=== PATIENT | male | born 1980 | race Caucasian/White ===

== ENCOUNTER 2017-10-02 01:24 | Emergency (ER) | payer BC, OTHER ==
--- NOTE | 2017-10-02 01:45 | EDM.PDOC ---
ED HPI GENERAL MEDICAL PROBLEM - General Stated Complaint: SEIZURES Time Seen by Provider: 10/02/17 01:25 Source of Information: Reports: Patient, EMS History Limitations: Reports: No Limitations - History of Present Illness INITIAL COMMENTS - FREE TEXT/NARRATIVE: HISTORY AND PHYSICAL: History of present illness: [36-year-old male presenting to the emergency department by EMS and police for seizure-like activity. Patient was arrested this evening for suspected DUI. Patient refused breathalyzer on scene so was being taken into the [employer]. During transportation he began to throw himself around the backside of the car having seizure-like activity so officer summoned EMS. When EMS arrived they state the patient was on his left side and vehicle. When they questioned him he was alert and oriented but then became combative. During transport he began to have this seizure like activity so was given 2.5 mg nasal Versed which as per EMS he blew out. He then was given 5 mg Versed IM which EMS stated was not very affective. When questioning patient he states that he remembers them giving him this medications when he states he was having a seizure and they did not have his permission. He still somewhat combative and states that he is refusing any blood work. He is alert and orientated when questioned further. Patient had seizure like activity when I was present. He was responsive the entire time when I tried to get a blood draw which he physically withdrew. This was not seizure activity. Patient was released to police for incarceration. ] Review of systems: As per history of present illness and below otherwise all systems reviewed and negative. Past medical history: As per history of present illness and as reviewed below otherwise noncontributory. Surgical history: As per history of present illness and as reviewed below otherwise noncontributory. Social history: No reported history of drug or alcohol abuse. Family history: As per history of present illness and as reviewed below otherwise noncontributory. Physical exam: HEENT: Atraumatic, normocephalic, pupils reactive, negative for conjunctival pallor or scleral icterus, mucous membranes moist, throat clear, neck supple, nontender, trachea midline. Lungs: Clear to auscultation, breath sounds equal bilaterally, chest nontender. Heart: S1S2, regular, negative for clicks, rubs, or JVD. Abdomen: Soft, nondistended, nontender. Negative for masses or hepatosplenomegaly. Negative for costovertebral tenderness. Pelvis: Stable nontender. Genitourinary: Deferred. Rectal: Deferred. Extremities: Atraumatic, negative for cords or calf pain. Neurovascular unremarkable. Neuro: Awake, alert, oriented. Cranial nerves II through XII unremarkable. Cerebellum unremarkable. Motor and sensory unremarkable throughout. Exam nonfocal. Diagnostics: [Patient refused] Therapeutics: [Patient refused] Impression: [Psychogenic nonepileptic seizure.] Plan: [Discharged to police for incarceration.] - Related Data Allergies Allergy/AdvReac Type Severity Reaction Status Date / Time No Known Allergies Allergy Verified 03/31/14 18:20 Home Meds: Home Meds . [No Known Home Meds] 03/31/14 [History] Past Medical History - Past Health History Medical/Surgical History: Denies Medical/Surgical History Social & Family History - Tobacco Use Smoking Status *Q: Light Tobacco Smoker - Alcohol Use Days Per Week of Alcohol Use: 1 Number of Drinks Per Day: 6 Total Drinks Per Week: 6 - Recreational Drug Use Recreational Drug Use: No ED ROS GENERAL - Review of Systems Review Of Systems: See Below ED EXAM, GENERAL - Physical Exam Exam: See Below Course - Orders/Labs/Meds Orders: Active Orders 24 hr Category Date Time Status Cervical Spine wo Cont [CT] Stat Exams 10/02/17 01:27 Ordered Head wo Cont [CT] Stat Exams 10/02/17 01:27 Ordered CBC WITH AUTO DIFF [HEME] Stat Lab 10/02/17 01:27 Ordered CMP [COMPREHENSIVE METABOLIC PN,CMP] [CHEM] Stat Lab 10/02/17 01:27 Ordered ETOH [ETHANOL BLOOD MEDICAL] [CHEM] Stat Lab 10/02/17 01:28 Ordered PROLACTIN [CHEM] Stat Lab 10/02/17 01:27 Ordered Departure - Departure Time of Disposition: 02:03 Disposition: DC/Tfer to Other 70 Condition: Good Clinical Impression: Psychogenic nonepileptic seizure - Discharge Information Additional Instructions: My general discharge The following information is given to patients seen in the emergency department who are being discharged to home. This information is to outline your options for follow-up care. We provide all patients seen in our emergency department with a follow-up referral. The need for follow-up, as well as the timing and circumstances, are variable depending upon the specifics of your emergency department visit. If you don't have a primary care physician on staff, we will provide you with a referral. We always advise you to contact your personal physician following an emergency department visit to inform them of the circumstance of the visit and for follow-up with them and/or the need for any referrals to a consulting specialist. The emergency department will also refer you to a specialist when appropriate. This referral assures that you have the opportunity for follow-up care with a specialist. All of these measure are taken in an effort to provide you with optimal care, which includes your follow-up. Under all circumstances we always encourage you to contact your private physician who remains a resource for coordinating your care. When calling for follow-up care, please make the office aware that this follow-up is from your recent emergency room visit. If for any reason you are refused follow-up, please contact the [facility] Emergency Department at and asked to speak to the emergency department charge nurse. [facility] [address] [place] [id number] - My Orders Last 24 Hours: My Active Orders 10/02/17 01:27 Cervical Spine wo Cont [CT] Stat Head wo Cont [CT] Stat CBC WITH AUTO DIFF [HEME] Stat CMP [COMPREHENSIVE METABOLIC PN,CMP] [CHEM] Stat PROLACTIN [CHEM] Stat 10/02/17 01:28 ETOH [ETHANOL BLOOD MEDICAL] [CHEM] Stat - Assessment/Plan Last 24 Hours: My Active Orders 10/02/17 01:27 Cervical Spine wo Cont [CT] Stat Head wo Cont [CT] Stat CBC WITH AUTO DIFF [HEME] Stat CMP [COMPREHENSIVE METABOLIC PN,CMP] [CHEM] Stat PROLACTIN [CHEM] Stat 10/02/17 01:28 ETOH [ETHANOL BLOOD MEDICAL] [CHEM] Stat
== END 2017-10-02 02:06 | disposition other institution (70) ==
LOC: MW.ED 01:24
DX: F44.5 Conversion disorder with seizures or convulsions (principal); F17.210 Nicotine dependence, cigarettes, uncomplicated
CPT/HCPCS: 99283; 99284

== ENCOUNTER 2019-07-25 12:31 | Observation (INO) | payer OTHER ==
--- NOTE | 2019-07-25 12:52 | EDM.PDOC ---
ED HPI GENERAL MEDICAL PROBLEM - General Chief Complaint: Chest Pain Stated Complaint: HIGH BLOOD PRESSURE Time Seen by Provider: 07/25/19 12:51 Source of Information: Reports: Patient History Limitations: Reports: No Limitations - History of Present Illness INITIAL COMMENTS - FREE TEXT/NARRATIVE: Patient is a 38-year-old male who is complaining of having elevated blood pressure which was noted this last while at his dentist. This pressure was over 200/100 at that time. Patient was not having any symptoms besides a mild headache initially. He has since developed exertional shortness of breath and chest pain which has been getting worse. He describes the pain as chest tightness that does radiate to his jaws and pressure-like with 3-4 out of 10 in intensity. He is having dyspnea on exertion but none at rest. He denies any fever chills or diaphoresis or vomiting. He denies any bloody or tarry looking stools. Patient denies any pedal edema or calf swelling or tenderness. He is a cigarette smoker and does have positive family history for coronary artery disease. Patient has not been using any drugs or cocaine and has no history of diabetes or hypercholesterolemia. Is not on any medicines for his elevated blood pressure. Onset: Unknown/Unsure Location: Reports: Chest Quality: Reports: Pressure Severity: Moderate Improves with: Reports: Rest Worsens with: Reports: Movement Associated Symptoms: Reports: Chest Pain, Headaches, Shortness of Breath. Denies: Cough, Fever/Chills, Nausea/Vomiting Head Pain Score (Numeric/FACES): 3 chest Pain Score (Numeric/FACES): 1 - Related Data Allergies Allergy/AdvReac Type Severity Reaction Status Date / Time No Known Allergies Allergy Verified 07/25/19 12:49 Home Meds: Home Meds Aspirin 81 mg PO DAILY tab.chew 07/26/19 [Rx] Chlorthalidone 25 mg PO DAILY #30 tablet 07/26/19 [Rx] amLODIPine [Norvasc] 10 mg PO DAILY #60 tablet 07/26/19 [Rx] Past Medical History - Past Health History Medical/Surgical History: Denies Medical/Surgical History ED ROS GENERAL - Review of Systems Review Of Systems: Comprehensive ROS is negative, except as noted in HPI. ED EXAM, GENERAL - Physical Exam Exam: See Below Free Text/Narrative:: Exam: See Below Exam Limited By: No Limitations Head: Atraumatic Neck: Normal Inspection. No: Carotid Bruit, Lymphadenopathy (R) Respiratory/Chest: No Respiratory Distress, Lungs Clear, Normal Breath Sounds, No Accessory Muscle Use. No: Chest Non-Tender Cardiovascular: Normal Peripheral Pulses, Regular Rate, Rhythm, No Edema, No JVD GI/Abdominal: Normal Bowel Sounds, Tender. No: Non-Tender, Splenomegaly Back Exam: Normal Inspection. No: CVA Tenderness (R) Extremities: Normal Inspection. No: No Pedal Edema Neurological: Alert, Oriented, Normal Cognition Psychiatric: Normal Affect Skin Exam: Warm Lymphatic: No Adenopathy Exam Limited By: No Limitations General Appearance: Alert, No Apparent Distress Throat/Mouth: Normal Inspection Head: Atraumatic, Normocephalic Neck: Normal Inspection, Non-Tender Respiratory/Chest: No Respiratory Distress, Lungs Clear, Normal Breath Sounds. No: Crackles, Rales, Rhonchi Cardiovascular: Regular Rate, Rhythm, No Edema, No JVD Back Exam: Normal Inspection Extremities: Normal Inspection, No Pedal Edema Neurological: Alert, Oriented Psychiatric: Normal Affect, Normal Mood Skin Exam: Warm, Dry EKG INTERPRETATION Rhythm: NSR P-Wave: Present ST-T: Normal QT: Normal Course - Vital Signs Last Recorded V/S: Last Vital Signs Temp 36.6 C 07/26/19 11:00 Pulse 76 07/26/19 11:00 Resp 16 07/26/19 11:00 BP 148/98 H 07/26/19 11:00 Pulse Ox 96 07/26/19 11:00 - Orders/Labs/Meds Labs: Laboratory Tests 07/25/19 07/25/19 07/25/19 Range/Units 12:55 12:55 12:55 WBC 9.84 (4.0-11.0) K/uL RBC 5.45 (4.50-5.90) M/uL Hgb 19.1 H (13.0-17.0) g/dL Hct 53.4 H (38.0-50.0) % MCV 98.0 (80.0-98.0) fL MCH 35.0 H (27.0-32.0) pg MCHC 35.8 (31.0-37.0) g/dL RDW Std Deviation 47.5 (28.0-62.0) fl RDW Coeff of Oscar 13 (11.0-15.0) % Plt Count 266 (150-400) K/uL MPV 8.90 (7.40-12.00) fL Neut % (Auto) 69.0 (48.0-80.0) % Lymph % (Auto) 14.5 L (16.0-40.0) % Mesa % (Auto) 11.3 (0.0-15.0) % Eos % (Auto) 4.8 (0.0-7.0) % Baso % (Auto) 0.4 (0.0-1.5) % Neut # (Auto) 6.8 H (1.4-5.7) K/uL Lymph # (Auto) 1.4 (0.6-2.4) K/uL Mesa # (Auto) 1.1 H (0.0-0.8) K/uL Eos # (Auto) 0.5 (0.0-0.7) K/uL Baso # (Auto) 0.0 (0.0-0.1) K/uL Nucleated RBC % 0.0 /100WBC Nucleated RBCs # 0 K/uL INR 0.95 D-Dimer, Quantitative 0.26 (0.0-0.50) mg/L FEU Sodium 135 L (136-148) mmol/L Potassium 4.5 (3.5-5.1) mmol/L Chloride 100 (98-107) mmol/L Carbon Dioxide 25.8 (21.0-32.0) mmol/L BUN 9 (7.0-18.0) mg/dL Creatinine 1.3 (0.8-1.3) mg/dL Est Cr Clr Drug Dosing 86.22 mL/min Estimated GFR (MDRD) > 60.0 ml/min Glucose 85 (74-106) mg/dL Calcium 9.2 (8.5-10.1) mg/dL Iron (50-175) ug/dL TIBC (250-450) ug/dL % Saturation (20-55) % Ferritin (26-388) ng/mL Total Bilirubin 0.9 (0.2-1.0) mg/dL AST 178 H (15-37) IU/L ALT 245 H (14-63) IU/L Alkaline Phosphatase 92 (46-116) U/L Troponin I < 0.050 (0.000-0.056) ng/mL Total Protein 8.0 (6.4-8.2) g/dL Albumin 4.0 (3.4-5.0) g/dL Globulin 4.0 (2.6-4.0) g/dL Albumin/Globulin Ratio 1.0 (0.9-1.6) TSH 3rd Generation (0.36-3.74) uIU/mL 07/25/19 07/25/19 Range/Units 12:55 12:55 WBC (4.0-11.0) K/uL RBC (4.50-5.90) M/uL Hgb (13.0-17.0) g/dL Hct (38.0-50.0) % MCV (80.0-98.0) fL MCH (27.0-32.0) pg MCHC (31.0-37.0) g/dL RDW Std Deviation (28.0-62.0) fl RDW Coeff of Oscar (11.0-15.0) % Plt Count (150-400) K/uL MPV (7.40-12.00) fL Neut % (Auto) (48.0-80.0) % Lymph % (Auto) (16.0-40.0) % Mesa % (Auto) (0.0-15.0) % Eos % (Auto) (0.0-7.0) % Baso % (Auto) (0.0-1.5) % Neut # (Auto) (1.4-5.7) K/uL Lymph # (Auto) (0.6-2.4) K/uL Mesa # (Auto) (0.0-0.8) K/uL Eos # (Auto) (0.0-0.7) K/uL Baso # (Auto) (0.0-0.1) K/uL Nucleated RBC % /100WBC Nucleated RBCs # K/uL INR D-Dimer, Quantitative (0.0-0.50) mg/L FEU Sodium (136-148) mmol/L Potassium (3.5-5.1) mmol/L Chloride (98-107) mmol/L Carbon Dioxide (21.0-32.0) mmol/L BUN (7.0-18.0) mg/dL Creatinine (0.8-1.3) mg/dL Est Cr Clr Drug Dosing mL/min Estimated GFR (MDRD) ml/min Glucose (74-106) mg/dL Calcium (8.5-10.1) mg/dL Iron 93 (50-175) ug/dL TIBC 462 H (250-450) ug/dL % Saturation 20.13 (20-55) % Ferritin 260 (26-388) ng/mL Total Bilirubin (0.2-1.0) mg/dL AST (15-37) IU/L ALT (14-63) IU/L Alkaline Phosphatase (46-116) U/L Troponin I (0.000-0.056) ng/mL Total Protein (6.4-8.2) g/dL Albumin (3.4-5.0) g/dL Globulin (2.6-4.0) g/dL Albumin/Globulin Ratio (0.9-1.6) TSH 3rd Generation 2.03 (0.36-3.74) uIU/mL Meds: Medications Discontinued Medications Generic Name Dose Route Start Last Admin Trade Name Freq PRN Reason Stop Dose Admin Acetaminophen 650 mg 07/25/19 13:11 07/25/19 13:36 Tylenol PO 07/25/19 13:12 650 mg NOW ONE Administration Amlodipine Besylate 10 mg 07/25/19 16:30 07/26/19 09:46 Norvasc PO 10 mg DAILY KWABENA Administration Aspirin 324 mg 07/25/19 13:06 07/25/19 13:36 Aspirin PO 07/25/19 13:07 324 mg ONETIME ONE Administration Aspirin 81 mg 07/26/19 09:00 07/26/19 09:46 Aspirin PO 81 mg DAILY KWABENA Administration Chlorthalidone 25 mg 07/25/19 21:52 07/26/19 09:45 Chlorthalidone PO 25 mg DAILY [facility] Administration Enoxaparin Sodium 100 mg 07/25/19 17:43 07/25/19 18:06 Lovenox SUBCUT 07/25/19 17:44 100 mg ONETIME ONE Administration Influenza Virus Vaccine 60 mcg 07/26/19 09:00 07/26/19 12:29 Fluzone Quad [id number] Syringe IM 07/26/19 09:01 60 mcg .ONCE ONE Administration Labetalol HCl 10 mg 07/25/19 16:23 Normodyne IVPUSH Q6H PRN Hypertension Protocol Metoprolol Tartrate 5 mg 07/25/19 13:08 07/25/19 13:36 Lopressor IVPUSH 07/25/19 13:09 5 mg ONETIME ONE Administration Metoprolol Tartrate 50 mg 07/25/19 16:30 Lopressor PO Q12H KWABENA Morphine Sulfate 1 mg 07/25/19 17:46 Morphine IVPUSH Q4H PRN Pain Nitroglycerin 1 gm 07/25/19 13:08 07/25/19 13:37 Nitro-Bid 2% TOP 07/25/19 13:09 1 gm ONETIME ONE Administration Sodium Chloride 10 ml 07/25/19 13:06 07/25/19 13:37 Saline Flush FLUSH 10 ml ASDIRECTED PRN Administration Keep Vein Open Sodium Chloride 2.5 ml 07/25/19 13:06 07/25/19 13:37 Saline Flush FLUSH 2.5 ml ASDIRECTED PRN Administration Keep Vein Open Departure - Departure Time of Disposition: 19:00 Disposition: Refer to Observation Condition: Good Clinical Impression: Atypical chest pain, Hypertension Sepsis Event Note - Focused Exam Date Exam was Performed: 08/29/19 Time Exam was Performed: 16:07
[2019-07-25] MEDS ORDERED: Sodium Chloride 0.9% 10 ML Syringe FLUSH PRN (13:06)
[2019-07-25] MEDS ORDERED: Aspirin 81 MG Tab.Chew PO ONE (13:06)
[2019-07-25] MEDS ORDERED: Sodium Chloride 0.9% 2.5 ML Syringe FLUSH PRN (13:06)
[2019-07-25] MEDS ORDERED: Nitroglycerin 2% Oint 1 GM UD Packet TOP ONE (13:08)
[2019-07-25] MEDS ORDERED: Metoprolol Tartrate 5 MG/5 ML SDV IVPUSH ONE (13:08)
[2019-07-25] MEDS ORDERED: Acetaminophen 325 MG Tab PO ONE (13:11)
[2019-07-25 13:30] LABS: BLOOD UREA NITROGEN,BUN 9 mg/dL (7.0-18.0); CARBON DIOXIDE,CO2 25.8 mmol/L (21.0-32.0); CHLORIDE,CL 100 mmol/L (98-107); GLUCOSE RANDOM 85 mg/dL (74-106); POTASSIUM,K 4.5 mmol/L (3.5-5.1); SODIUM,NA 135 mmol/L (136-148)
--- NOTE | 2019-07-25 13:48 | CR ---
INDICATION: Chest pain TECHNIQUE: Chest 1 view. COMPARISON: None FINDINGS: Cardiovascular and mediastinum: Heart size upper limits of normal. Mediastinum is within normal limits. Lungs and pleural space: Lungs are clear. No sign of infiltrate or mass. No sign of pleural effusion. No pneumothorax. Bones and soft tissues: No significant findings. IMPRESSION: No acute pulmonary or cardiac abnormalities. Dictated by Demarcus Bennett MD @ 07/25/2019 1:46:09 PM Dictated by: Demarcus Bennett MD @ 07/25/2019 13:46:15 (Electronically Signed)
[2019-07-25] MEDS ORDERED: Labetalol 100 MG/20 ML MDV IVPUSH PRN (16:23)
[2019-07-25] MEDS ORDERED: Metoprolol Tartrate 50 MG Tab PO SCH (16:30)
--- NOTE | 2019-07-25 16:43 | PCM.HP.2 ---
H&P History of Present Illness - General Date of Service: 07/25/19 Admit Problem/Dx: Admission Diagnosis/Problem Admission Diagnosis/Problem Chest pain - History of Present Illness Initial Comments - Free Text/Narative: Patient is a 38-year-old male with PMH of taboo abuse, recent HTN diagnosis who comes in for evaluation of elevated blood pressure. Patient states that his BP was noted to be high (200/100) while he was at his dentist office last . which was noted this last while at his dentist. Patient was recommended to fu with his PCP but comes in today as he has been having a vague headache. Patient also complains of exertional shortness of breath and chest tightness which has been getting worse. Chest discomfort is 2-3/10 and does radiate to his jaws and pressure-like. Patient denies any fever, chills, N/V, diaphoresis, palpitations,syncope. He denies any bloody or tarry looking stools. Patient denies any pedal edema or calf swelling or tenderness. Denied any drug use. In the ER patient was found to have high BP 190/115, patient also c/o chest tightness. Received Lopressor rin ER and BP improved. Patient is being admitted for management of hypertensive urgency and chest pain. Onset of Symptoms: Reports: Gradual chest Pain Score (Numeric/FACES): 1 Head Pain Score (Numeric/FACES): 3 - Related Data Allergies/Adverse Reactions: Allergies Allergy/AdvReac Type Severity Reaction Status Date / Time No Known Allergies Allergy Verified 07/25/19 12:49 Home Medications: Home Meds Aspirin 81 mg PO DAILY tab.chew 07/26/19 [Rx] Chlorthalidone 25 mg PO DAILY #30 tablet 07/26/19 [Rx] amLODIPine [Norvasc] 10 mg PO DAILY #60 tablet 07/26/19 [Rx] Past Medical History - Past Health History Medical/Surgical History: Denies Medical/Surgical History - Infectious Disease History Infectious Disease History: Reports: None Social & Family History - Family History Family Medical History: Noncontributory - Tobacco Use Smoking Status *Q: Never Smoker Second Hand Smoke Exposure: No - Caffeine Use Caffeine Use: Reports: None - Recreational Drug Use Recreational Drug Use: No H&P Review of Systems - Review of Systems: Review Of Systems: See Below General: Denies: Fever, Chills, Malaise, Weakness, Fatigue HEENT: Reports: Headaches. Denies: Dysphasia, Ear Pain Pulmonary: Denies: Shortness of Breath, Wheezing, Sputum Cardiovascular: Reports: Chest Pain, Dyspnea on Exertion. Denies: Palpitations , Orthopnea, PND, Edema Gastrointestinal: Denies: Abdominal Pain, Anorexia, Black Stool Genitourinary: Denies: Dysuria, Frequency, Burning Musculoskeletal: Denies: Neck Pain, Shoulder Pain, Arm Pain Skin: Denies: Cyanosis, Jaundice, Mottled Psychiatric: Denies: Confusion, Depression Neurological: Denies: Confusion, Dizziness, Headache Exam - Exam Exam: See Below - Vital Signs Vital Signs: Last Vital Signs Temp 35.4 C 07/25/19 12:50 Pulse 85 07/25/19 15:45 Resp 16 07/25/19 15:45 BP 145/79 H 07/25/19 15:45 Pulse Ox 95 07/25/19 15:45 Weight: 113.398 kg - Exam General: Alert, Oriented HEENT: Conjunctiva Clear, EACs Clear Neck: Supple, Trachea Midline Lungs: Clear to Auscultation, Normal Respiratory Effort Cardiovascular: Regular Rate, Regular Rhythm, Normal S1, Normal S2 GI/Abdominal Exam: Normal Bowel Sounds, Soft, Non-Tender Peripheral Pulses: 3+: Dorsalis Pedis (L), Dorsalis Pedis (R) Neurological: Cranial Nerves Intact, Strength Equal Bilateral, Normal Tone, Sensation Intact Neuro Extensive - Mental Status: Alert, Oriented x3, Normal Mood/Affect Neuro Extensive - Motor, Sensory, Reflexes: CN II-XII Intact - Patient Data Lab Results Last 24 hrs: Laboratory Results - last 24 hr 07/25/19 07/25/19 07/25/19 Range/Units 12:55 12:55 12:55 WBC 9.84 (4.0-11.0) K/uL RBC 5.45 (4.50-5.90) M/uL Hgb 19.1 H (13.0-17.0) g/dL Hct 53.4 H (38.0-50.0) % MCV 98.0 (80.0-98.0) fL MCH 35.0 H (27.0-32.0) pg MCHC 35.8 (31.0-37.0) g/dL RDW Std Deviation 47.5 (28.0-62.0) fl RDW Coeff of Oscar 13 (11.0-15.0) % Plt Count 266 (150-400) K/uL MPV 8.90 (7.40-12.00) fL Neut % (Auto) 69.0 (48.0-80.0) % Lymph % (Auto) 14.5 L (16.0-40.0) % [place] % (Auto) 11.3 (0.0-15.0) % Eos % (Auto) 4.8 (0.0-7.0) % Baso % (Auto) 0.4 (0.0-1.5) % Neut # (Auto) 6.8 H (1.4-5.7) K/uL Lymph # (Auto) 1.4 (0.6-2.4) K/uL [place] # (Auto) 1.1 H (0.0-0.8) K/uL Eos # (Auto) 0.5 (0.0-0.7) K/uL Baso # (Auto) 0.0 (0.0-0.1) K/uL Nucleated RBC % 0.0 /100WBC Nucleated RBCs # 0 K/uL INR 0.95 D-Dimer, Quantitative 0.26 (0.0-0.50) mg/L FEU Sodium 135 L (136-148) mmol/L Potassium 4.5 (3.5-5.1) mmol/L Chloride 100 (98-107) mmol/L Carbon Dioxide 25.8 (21.0-32.0) mmol/L BUN 9 (7.0-18.0) mg/dL Creatinine 1.3 (0.8-1.3) mg/dL Est Cr Clr Drug Dosing 86.22 mL/min Estimated GFR (MDRD) > 60.0 ml/min Glucose 85 (74-106) mg/dL Calcium 9.2 (8.5-10.1) mg/dL Total Bilirubin 0.9 (0.2-1.0) mg/dL AST 178 H (15-37) IU/L ALT 245 H (14-63) IU/L Alkaline Phosphatase 92 (46-116) U/L Troponin I < 0.050 (0.000-0.056) ng/mL Total Protein 8.0 (6.4-8.2) g/dL Albumin 4.0 (3.4-5.0) g/dL Globulin 4.0 (2.6-4.0) g/dL Albumin/Globulin Ratio 1.0 (0.9-1.6) Result Diagrams: 07/26/19 05:30 07/26/19 05:30 Sepsis Event Note - Evaluation Sepsis Screening Result: No Definite Risk - Focused Exam Vital Signs: Vital Signs Temp Pulse Pulse Resp BP BP Pulse Ox 07/25/19 15:45 85 16 145/79 H 95 07/25/19 15:00 80 18 155/92 H 98 07/25/19 14:45 83 18 152/90 H 96 07/25/19 14:15 81 18 169/106 H 98 07/25/19 13:48 77 18 175/103 H 96 07/25/19 13:36 90 172/103 H 07/25/19 13:06 90 18 170/105 H 98 07/25/19 12:50 35.4 C 87 16 190/115 H 95 Date Exam was Performed: 08/02/19 Time Exam was Performed: 20:00 - Problem List (1) Hypertensive urgency SNOMED Code(s): 586348272 ICD Code: I16.0 - HYPERTENSIVE URGENCY Status: Acute (2) Elevated troponin SNOMED Code(s): 262791217, 194320736, 319765563 ICD Code: R79.89 - OTHER SPECIFIED ABNORMAL FINDINGS OF BLOOD CHEMISTRY Status: Acute (3) Transaminitis SNOMED Code(s): 227217802, 046134630 ICD Code: R74.0 - NONSPEC ELEV OF LEVELS OF TRANSAMNS & LACTIC ACID DEHYDRGNSE Status: Acute Problem List Initiated/Reviewed/Updated: Yes Orders Last 24hrs: Active Orders 24 hr Category Date Time Status Admission Status [Patient Status] [ADT] Stat ADT 07/25/19 15:31 Active Ambulate [RC] ASDIRECTED Care 07/25/19 16:17 Ordered Antiembolic Devices [RC] PER UNIT ROUTINE Care 07/25/19 16:20 Ordered Oxygen Therapy [RC] PRN Care 07/25/19 16:18 Ordered VTE/DVT Education [RC] PER UNIT ROUTINE Care 07/25/19 16:18 Ordered Vital Signs [RC] Q4H Care 07/25/19 16:18 Ordered Heart Healthy Diet [DIET] Diet 07/25/19 Dinner Ordered Echo 2D wo Cont [US] Routine Exams 07/25/19 16:27 Ordered CBC WITH AUTO DIFF [HEME] AM Lab 07/26/19 05:11 Ordered CMP [COMPREHENSIVE METABOLIC PN,CMP] [CHEM] AM Lab 07/26/19 05:11 Ordered FERRITIN [CHEM] Routine Lab 07/25/19 16:33 Ordered IRON/TIBC [CHEM] Routine Lab 07/25/19 16:33 Ordered LIPID PANEL [CHEM] AM Lab 07/26/19 05:11 Ordered MAGNESIUM [CHEM] AM Lab 07/26/19 05:11 Ordered PHOSPHORUS [CHEM] AM Lab 07/26/19 05:11 Ordered TROPONIN I [CHEM] Q3H Lab 07/25/19 16:42 Ordered TROPONIN I [CHEM] Q3H Lab 07/25/19 19:42 Ordered TSH [CHEM] Routine Lab 07/25/19 16:25 Ordered Aspirin Med 07/26/19 09:00 Ordered 81 mg PO DAILY Labetalol [Normodyne] Med 07/25/19 16:23 Ordered 10 mg IVPUSH Q6H PRN Sodium Chloride 0.9% [Saline Flush] Med 07/25/19 13:06 Active 10 ml FLUSH ASDIRECTED PRN Sodium Chloride 0.9% [Saline Flush] Med 07/25/19 13:06 Active 2.5 ml FLUSH ASDIRECTED PRN amLODIPine [Norvasc] Med 07/25/19 16:30 Ordered 10 mg PO DAILY Saline Lock Insert [OM.PC] Stat Oth 07/25/19 13:06 Ordered Sequential Compression Device [OM.PC] Per Unit Routine Oth 07/25/19 16:19 Ordered Resuscitation Status Routine Resus Stat 07/25/19 16:17 Ordered Medication Orders Amlodipine Besylate (Norvasc) 10 mg PO DAILY [facility] Aspirin (Aspirin) 81 mg PO DAILY [facility] Labetalol HCl (Normodyne) 10 mg IVPUSH Q6H PRN; Protocol PRN Reason: Hypertension Sodium Chloride (Saline Flush) 10 ml FLUSH ASDIRECTED PRN PRN Reason: Keep Vein Open Last Admin: 07/25/19 13:37 Dose: 10 ml Sodium Chloride (Saline Flush) 2.5 ml FLUSH ASDIRECTED PRN PRN Reason: Keep Vein Open Last Admin: 07/25/19 13:37 Dose: 2.5 ml Assessment/Plan Comment:: A/P: Patient is a 38 y/o M who come sin for evaluation of elevated BP, headache and chest tightness Was found to be in hypertensive urgency in ER, C/P has resolved Received Lopressor in ER Will admit to telemetry Will trend troponin, i expect a some type 2 leak secondary to high BP. Will start on IV labetalol PRN SBP>180 Start Amlodipine daily Check HbA1c, lipid profile ,ECHO, TSH Transaminitis, will check hepatitis panel Patient will need outpatient stress test eventfully Hb high, will check iron panel
[2019-07-25] MEDS ORDERED: FLU Vacc QS2019-20(6MOS+)/PF 60 MCG/0.5 ML SYRINGE IM ONE (17:15)
[2019-07-25] MEDS: amLODIPine 5 MG Tab PO SCH (17:29)
[2019-07-25] MEDS ORDERED: Enoxaparin 100 MG/1 ML Syringe SUBCUT ONE (17:43)
[2019-07-25] MEDS ORDERED: Morphine 2 MG/ML Syringe IVPUSH PRN (17:46)
[2019-07-25] MEDS: Chlorthalidone 25 MG Tab PO SCH (22:47)
[2019-07-26 06:17] LABS: CARBON DIOXIDE,CO2 33.2 mmol/L (21.0-32.0); POTASSIUM,K 4.2 mmol/L (3.5-5.1)
[2019-07-26] MEDS ORDERED: FLU Vacc QS2019-20(6MOS+)/PF 60 MCG/0.5 ML SYRINGE IM ONE (09:00)
[2019-07-26] MEDS ORDERED: Aspirin 81 MG Tab.Chew PO SCH (09:00)
[2019-07-26] MEDS: Chlorthalidone 25 MG Tab PO SCH (09:45)
[2019-07-26] MEDS: amLODIPine 5 MG Tab PO SCH (09:46)
--- NOTE | 2019-07-26 11:12 | PCM.PN ---
- General Info Date of Service: 07/26/19 Admission Dx/Problem (Free Text): Admission Diagnosis/Problem Admission Diagnosis/Problem Chest pain - Patient Data Vitals - Most Recent: Last Vital Signs Temp 97.8 F 07/26/19 07:20 Pulse 76 07/26/19 07:20 Resp 16 07/26/19 07:20 BP 126/81 07/26/19 09:46 Pulse Ox 96 07/26/19 07:20 Weight - Most Recent: 113.398 kg I&O - Last 24 Hours: Intake & Output 07/25/19 07/26/19 07/26/19 22:59 06:59 14:59 Intake Total 2200 Output Total 1800 Balance 400 Lab Results Last 24 Hours: Laboratory Results - last 24 hr 07/25/19 07/25/19 07/25/19 Range/Units 12:55 12:55 12:55 WBC 9.84 (4.0-11.0) K/uL RBC 5.45 (4.50-5.90) M/uL Hgb 19.1 H (13.0-17.0) g/dL Hct 53.4 H (38.0-50.0) % MCV 98.0 (80.0-98.0) fL MCH 35.0 H (27.0-32.0) pg MCHC 35.8 (31.0-37.0) g/dL RDW Std Deviation 47.5 (28.0-62.0) fl RDW Coeff of Oscar 13 (11.0-15.0) % Plt Count 266 (150-400) K/uL MPV 8.90 (7.40-12.00) fL Neut % (Auto) 69.0 (48.0-80.0) % Lymph % (Auto) 14.5 L (16.0-40.0) % [place] % (Auto) 11.3 (0.0-15.0) % Eos % (Auto) 4.8 (0.0-7.0) % Baso % (Auto) 0.4 (0.0-1.5) % Neut # (Auto) 6.8 H (1.4-5.7) K/uL Lymph # (Auto) 1.4 (0.6-2.4) K/uL [place] # (Auto) 1.1 H (0.0-0.8) K/uL Eos # (Auto) 0.5 (0.0-0.7) K/uL Baso # (Auto) 0.0 (0.0-0.1) K/uL Nucleated RBC % 0.0 /100WBC Nucleated RBCs # 0 K/uL INR 0.95 D-Dimer, Quantitative 0.26 (0.0-0.50) mg/L FEU Sodium 135 L (136-148) mmol/L Potassium 4.5 (3.5-5.1) mmol/L Chloride 100 (98-107) mmol/L Carbon Dioxide 25.8 (21.0-32.0) mmol/L BUN 9 (7.0-18.0) mg/dL Creatinine 1.3 (0.8-1.3) mg/dL Est Cr Clr Drug Dosing 86.22 mL/min Estimated GFR (MDRD) > 60.0 ml/min Glucose 85 (74-106) mg/dL Hemoglobin A1c (4.5-6.2) % Calcium 9.2 (8.5-10.1) mg/dL Phosphorus (2.6-4.7) mg/dL Magnesium (1.8-2.4) mg/dL Iron (50-175) ug/dL TIBC (250-450) ug/dL % Saturation (20-55) % Ferritin (26-388) ng/mL Total Bilirubin 0.9 (0.2-1.0) mg/dL AST 178 H (15-37) IU/L ALT 245 H (14-63) IU/L Alkaline Phosphatase 92 (46-116) U/L Troponin I < 0.050 (0.000-0.056) ng/mL Total Protein 8.0 (6.4-8.2) g/dL Albumin 4.0 (3.4-5.0) g/dL Globulin 4.0 (2.6-4.0) g/dL Albumin/Globulin Ratio 1.0 (0.9-1.6) Triglycerides (0-200) mg/dL Cholesterol (50-200) mg/dL LDL Cholesterol, Calc (60-180) mg/dL VLDL Cholesterol (5-55) mg/dL HDL Cholesterol (40-60) mg/dL Cholesterol/HDL Ratio (3.3-6.0) TSH 3rd Generation (0.36-3.74) uIU/mL 07/25/19 07/25/19 07/25/19 Range/Units 12:55 12:55 16:54 WBC (4.0-11.0) K/uL RBC (4.50-5.90) M/uL Hgb (13.0-17.0) g/dL Hct (38.0-50.0) % MCV (80.0-98.0) fL MCH (27.0-32.0) pg MCHC (31.0-37.0) g/dL RDW Std Deviation (28.0-62.0) fl RDW Coeff of [place] (11.0-15.0) % Plt Count (150-400) K/uL MPV (7.40-12.00) fL Neut % (Auto) (48.0-80.0) % Lymph % (Auto) (16.0-40.0) % [place] % (Auto) (0.0-15.0) % Eos % (Auto) (0.0-7.0) % Baso % (Auto) (0.0-1.5) % Neut # (Auto) (1.4-5.7) K/uL Lymph # (Auto) (0.6-2.4) K/uL [place] # (Auto) (0.0-0.8) K/uL Eos # (Auto) (0.0-0.7) K/uL Baso # (Auto) (0.0-0.1) K/uL Nucleated RBC % /100WBC Nucleated RBCs # K/uL INR D-Dimer, Quantitative (0.0-0.50) mg/L FEU Sodium (136-148) mmol/L Potassium (3.5-5.1) mmol/L Chloride (98-107) mmol/L Carbon Dioxide (21.0-32.0) mmol/L BUN (7.0-18.0) mg/dL Creatinine (0.8-1.3) mg/dL Est Cr Clr Drug Dosing mL/min Estimated GFR (MDRD) ml/min Glucose (74-106) mg/dL Hemoglobin A1c (4.5-6.2) % Calcium (8.5-10.1) mg/dL Phosphorus (2.6-4.7) mg/dL Magnesium (1.8-2.4) mg/dL Iron 93 (50-175) ug/dL TIBC 462 H (250-450) ug/dL % Saturation 20.13 (20-55) % Ferritin 260 (26-388) ng/mL Total Bilirubin (0.2-1.0) mg/dL AST (15-37) IU/L ALT (14-63) IU/L Alkaline Phosphatase (46-116) U/L Troponin I 0.061 H* (0.000-0.056) ng/mL Total Protein (6.4-8.2) g/dL Albumin (3.4-5.0) g/dL Globulin (2.6-4.0) g/dL Albumin/Globulin Ratio (0.9-1.6) Triglycerides (0-200) mg/dL Cholesterol (50-200) mg/dL LDL Cholesterol, Calc (60-180) mg/dL VLDL Cholesterol (5-55) mg/dL HDL Cholesterol (40-60) mg/dL Cholesterol/HDL Ratio (3.3-6.0) TSH 3rd Generation 2.03 (0.36-3.74) uIU/mL 07/25/19 07/25/19 07/25/19 Range/Units 19:39 19:44 22:48 WBC (4.0-11.0) K/uL RBC (4.50-5.90) M/uL Hgb (13.0-17.0) g/dL Hct (38.0-50.0) % MCV (80.0-98.0) fL MCH (27.0-32.0) pg MCHC (31.0-37.0) g/dL RDW Std Deviation (28.0-62.0) fl RDW Coeff of Oscar (11.0-15.0) % Plt Count (150-400) K/uL MPV (7.40-12.00) fL Neut % (Auto) (48.0-80.0) % Lymph % (Auto) (16.0-40.0) % [place] % (Auto) (0.0-15.0) % Eos % (Auto) (0.0-7.0) % Baso % (Auto) (0.0-1.5) % Neut # (Auto) (1.4-5.7) K/uL Lymph # (Auto) (0.6-2.4) K/uL [place] # (Auto) (0.0-0.8) K/uL Eos # (Auto) (0.0-0.7) K/uL Baso # (Auto) (0.0-0.1) K/uL Nucleated RBC % /100WBC Nucleated RBCs # K/uL INR D-Dimer, Quantitative (0.0-0.50) mg/L FEU Sodium (136-148) mmol/L Potassium (3.5-5.1) mmol/L Chloride (98-107) mmol/L Carbon Dioxide (21.0-32.0) mmol/L BUN (7.0-18.0) mg/dL Creatinine (0.8-1.3) mg/dL Est Cr Clr Drug Dosing mL/min Estimated GFR (MDRD) ml/min Glucose (74-106) mg/dL Hemoglobin A1c 5.0 (4.5-6.2) % Calcium (8.5-10.1) mg/dL Phosphorus (2.6-4.7) mg/dL Magnesium (1.8-2.4) mg/dL Iron (50-175) ug/dL TIBC (250-450) ug/dL % Saturation (20-55) % Ferritin (26-388) ng/mL Total Bilirubin (0.2-1.0) mg/dL AST (15-37) IU/L ALT (14-63) IU/L Alkaline Phosphatase (46-116) U/L Troponin I 0.060 H* 0.053 (0.000-0.056) ng/mL Total Protein (6.4-8.2) g/dL Albumin (3.4-5.0) g/dL Globulin (2.6-4.0) g/dL Albumin/Globulin Ratio (0.9-1.6) Triglycerides (0-200) mg/dL Cholesterol (50-200) mg/dL LDL Cholesterol, Calc (60-180) mg/dL VLDL Cholesterol (5-55) mg/dL HDL Cholesterol (40-60) mg/dL Cholesterol/HDL Ratio (3.3-6.0) TSH 3rd Generation (0.36-3.74) uIU/mL 07/26/19 07/26/19 Range/Units 05:30 05:30 WBC 8.18 (4.0-11.0) K/uL RBC 5.26 (4.50-5.90) M/uL Hgb 17.9 H (13.0-17.0) g/dL Hct 52.0 H (38.0-50.0) % MCV 98.9 H (80.0-98.0) fL MCH 34.0 H (27.0-32.0) pg MCHC 34.4 (31.0-37.0) g/dL RDW Std Deviation 47.7 (28.0-62.0) fl RDW Coeff of [place] 13 (11.0-15.0) % Plt Count 259 (150-400) K/uL MPV 9.00 (7.40-12.00) fL Neut % (Auto) 65.2 (48.0-80.0) % Lymph % (Auto) 12.2 L (16.0-40.0) % [place] % (Auto) 14.9 (0.0-15.0) % Eos % (Auto) 7.1 H (0.0-7.0) % Baso % (Auto) 0.6 (0.0-1.5) % Neut # (Auto) 5.3 (1.4-5.7) K/uL Lymph # (Auto) 1.0 (0.6-2.4) K/uL [place] # (Auto) 1.2 H (0.0-0.8) K/uL Eos # (Auto) 0.6 (0.0-0.7) K/uL Baso # (Auto) 0.1 (0.0-0.1) K/uL Nucleated RBC % 0.0 /100WBC Nucleated RBCs # 0 K/uL INR D-Dimer, Quantitative (0.0-0.50) mg/L FEU Sodium 138 (136-148) mmol/L Potassium 4.2 (3.5-5.1) mmol/L Chloride 102 (98-107) mmol/L Carbon Dioxide 33.2 H (21.0-32.0) mmol/L BUN 10 (7.0-18.0) mg/dL Creatinine 1.6 H (0.8-1.3) mg/dL Est Cr Clr Drug Dosing 70.06 mL/min Estimated GFR (MDRD) 49.2 ml/min Glucose 64 L (74-106) mg/dL Hemoglobin A1c (4.5-6.2) % Calcium 9.1 (8.5-10.1) mg/dL Phosphorus 3.0 (2.6-4.7) mg/dL Magnesium 2.0 (1.8-2.4) mg/dL Iron (50-175) ug/dL TIBC (250-450) ug/dL % Saturation (20-55) % Ferritin (26-388) ng/mL Total Bilirubin 0.8 (0.2-1.0) mg/dL AST 164 H (15-37) IU/L ALT 240 H (14-63) IU/L Alkaline Phosphatase 76 (46-116) U/L Troponin I (0.000-0.056) ng/mL Total Protein 6.9 (6.4-8.2) g/dL Albumin 3.4 (3.4-5.0) g/dL Globulin 3.5 (2.6-4.0) g/dL Albumin/Globulin Ratio 1.0 (0.9-1.6) Triglycerides 105 (0-200) mg/dL Cholesterol 158 (50-200) mg/dL LDL Cholesterol, Calc 90 (60-180) mg/dL VLDL Cholesterol 21 (5-55) mg/dL HDL Cholesterol 47 (40-60) mg/dL Cholesterol/HDL Ratio 3.4 (3.3-6.0) TSH 3rd Generation (0.36-3.74) uIU/mL Med Orders - Current: Current Medications Amlodipine Besylate (Norvasc) 10 mg PO DAILY [facility] Last Admin: 07/26/19 09:46 Dose: 10 mg Aspirin (Aspirin) 81 mg PO DAILY [facility] Last Admin: 07/26/19 09:46 Dose: 81 mg Chlorthalidone (Chlorthalidone) 25 mg PO DAILY [facility] Last Admin: 07/26/19 09:45 Dose: 25 mg Labetalol HCl (Normodyne) 10 mg IVPUSH Q6H PRN; Protocol PRN Reason: Hypertension Morphine Sulfate (Morphine) 1 mg IVPUSH Q4H PRN PRN Reason: Pain Sodium Chloride (Saline Flush) 10 ml FLUSH ASDIRECTED PRN PRN Reason: Keep Vein Open Last Admin: 07/25/19 13:37 Dose: 10 ml Sodium Chloride (Saline Flush) 2.5 ml FLUSH ASDIRECTED PRN PRN Reason: Keep Vein Open Last Admin: 07/25/19 13:37 Dose: 2.5 ml Discontinued Medications Acetaminophen (Tylenol) 650 mg PO NOW ONE Stop: 07/25/19 13:12 Last Admin: 07/25/19 13:36 Dose: 650 mg Aspirin (Aspirin) 324 mg PO ONETIME ONE Stop: 07/25/19 13:07 Last Admin: 07/25/19 13:36 Dose: 324 mg Enoxaparin Sodium (Lovenox) 100 mg SUBCUT ONETIME ONE Stop: 07/25/19 17:44 Last Admin: 07/25/19 18:06 Dose: 100 mg Influenza Virus Vaccine (Fluzone Quad Syringe) 60 mcg IM .ONCE ONE Stop: 07/26/19 09:01 Metoprolol Tartrate (Lopressor) 5 mg IVPUSH ONETIME ONE Stop: 07/25/19 13:09 Last Admin: 07/25/19 13:36 Dose: 5 mg Metoprolol Tartrate (Lopressor) 50 mg PO Q12H [facility] Nitroglycerin (Nitro-Bid 2%) 1 gm TOP ONETIME ONE Stop: 07/25/19 13:09 Last Admin: 07/25/19 13:37 Dose: 1 gm Sepsis Event Note - Evaluation Sepsis Screening Result: No Definite Risk - Focused Exam Vital Signs: Vital Signs Temp Pulse Resp BP BP Pulse Ox 07/26/19 09:46 126/81 07/26/19 07:20 97.8 F 76 16 126/81 96 07/26/19 04:00 97.2 F 72 17 156/73 H 97 Date Exam was Performed: 07/26/19 Time Exam was Performed: 11:12 - Problem List & Annotations (1) Palpitations SNOMED Code(s): 41621185 Code(s): R00.2 - PALPITATIONS Status: Acute Current Visit: Yes - My Orders Last 24 Hours: My Active Orders 07/26/19 11:11 Ready for Discharge [RC] PER UNIT ROUTINE - Plan Plan:: A/P: Patient is a 38 y/o M who come sin for evaluation of elevated BP, headache and chest tightness Was found to be in hypertensive urgency in ER, C/P has resolved Received Lopressor in ER Will admit to telemetry Will trend troponin, i expect a some type 2 leak secondary to high BP. Will start on IV labetalol PRN SBP>180 Start Amlodipine daily Check HbA1c, lipid profile ,ECHO, TSH Transaminitis, will check hepatitis panel Patient will need outpatient stress test eventfully Hb high, will check iron panel
--- NOTE | 2019-07-26 15:55 | PCM.DCSUM1 ---
Discharge Summary - Hospital Course Brief History: Patient is a 38-year-old male with PMH of taboo abuse, recent HTN diagnosis who comes in for evaluation of elevated blood pressure. Patient states that his BP was noted to be high (200/100) while he was at his dentist office last . which was noted this last while at his dentist. Patient was recommended to fu with his PCP but comes in today as he has been having a vague headache. Patient also complains of exertional shortness of breath and chest tightness which has been getting worse. Chest discomfort is 2- 3/10 and does radiate to his jaws and pressure-like. Patient denies any fever, chills, N/V, diaphoresis, palpitations,syncope. He denies any bloody or tarry looking stools. Patient denies any pedal edema or calf swelling or tenderness. Denied any drug use. In the ER patient was found to have high BP 190/115, patient also c/o chest tightness. Received Lopressor rin ER and BP improved. Patient is being admitted for management of hypertensive urgency and chest pain. Diagnosis: Stroke: No - Discharge Data Discharge Date: 07/26/19 Discharge Disposition: Home, Self-Care 01 Condition: Stable - Referral to Home Health Primary Care Physician: Tia White NP - Discharge Diagnosis/Problem(s) (1) Palpitations SNOMED Code(s): 77874578 ICD Code: R00.2 - PALPITATIONS Status: Acute - Patient Instructions Diet: Regular Diet as Tolerated Activity: No Strenuous Activities Showering/Bathing: May Shower Notify Provider of: Fever, Increased Pain, Swelling and Redness, Drainage, Nausea and/or Vomiting Other/Special Instructions: Highly encourage quitting smoking and sobriety from alcohol. Monitor Blood pressure at home, should be around 130 on top and less than 90 on the bottom. - Discharge Plan *PRESCRIPTION DRUG MONITORING PROGRAM REVIEWED*: Not Applicable *COPY OF PRESCRIPTION DRUG MONITORING REPORT IN PATIENT TOMMY: Not Applicable Prescriptions/Med Rec: amLODIPine [Norvasc] 10 mg PO DAILY #60 tablet Chlorthalidone 25 mg PO DAILY #30 tablet Home Medications: Home Meds Aspirin 81 mg PO DAILY tab.chew 07/26/19 [Rx] Chlorthalidone 25 mg PO DAILY #30 tablet 07/26/19 [Rx] amLODIPine [Norvasc] 10 mg PO DAILY #60 tablet 07/26/19 [Rx] Oxygen Therapy Mode: Room Air Patient Handouts: Pharmacologic Stress Echocardiogram, [id number], Nonspecific Chest Pain, [id number], Amlodipine tablets, Chlorthalidone tablets Referrals: Tee Dave MD [Physician] - 09/01/19 11:00 am Tia White NP [Primary Care Provider] - 08/02/19 10:15 am - Discharge Summary/Plan Comment DC Time >30 min.: No Discharge Summary/Plan Comment: Admitting Diagnoses: Hypertensive urgency Chest pain Discharge Diagnoses: Hypertensive urgency Chest pain Other PMH: Alcohol use Tobacco abuse chronic back pain Hx anabolic steroid use Murray was admitted secondary to hypertensive urgency with mild headache. He was started on Amlodipine and Chlorthalidone for BP. BPs have come down nicely to 130/80s. He has no further headache. ECHO pending on discharge. ACS ruled out , troponin bumped slightly to 0.06, which was likely secondary to HTN, no EKG ST elevate or T wave inversions. During discussion today he provided information such as history of severe palpitation as recently as 2 weeks ago lasting many hours with sweating and nausea. He reports he has had these on and off since he was 14, when he had a heart cath to evaluate for a hole in his heart, which he reported they didn't find. 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 He recently stopped anabolic steroids 4-6 months ago. He reports drinking upwards of a 5th of alcohol daily and is now down to 4-8 beers daily. He also smokes 1/2 ppd. He has been actively trying to quit with his . We discussed at length, greater than 20 minutes his use of alcohol, tobacco and lifestyle changes including stopping added salt. He and verbalized understanding of changes that need to be made. I will discharge him home today, with follow up with PCP as well as Cardiology. I will place ZIO patch prior to discharge to be worn for 2 weeks to evaluate further palpitations. I will also set up outpatient stress test. He was counseled to monitor BP at home. He is to return to the ED or clinic if concerns should arise. - General Info Date of Service: 07/26/19 Admission Dx/Problem (Free Text: hypertensive urgency Subjective Update: Doing well this morning, eager for discharge. Feeling improved. No further chest pain. No other concerns. and children at bedside. Functional Status: Reports: Pain Controlled, Tolerating Diet, Ambulating, Urinating - Review of Systems General: Reports: No Symptoms. Denies: Weakness, Fatigue HEENT: Reports: No Symptoms. Denies: Headaches, Sore Throat Pulmonary: Reports: No Symptoms. Denies: Shortness of Breath Cardiovascular: Reports: No Symptoms. Denies: Chest Pain Gastrointestinal: Reports: No Symptoms. Denies: Abdominal Pain, Nausea, Vomiting Genitourinary: Reports: No Symptoms. Denies: Dysuria, Frequency Skin: Reports: No Symptoms Neurological: Reports: No Symptoms Psychiatric: Reports: No Symptoms - Patient Data Vitals - Most Recent: Last Vital Signs Temp 97.8 F 07/26/19 11:00 Pulse 76 07/26/19 11:00 Resp 16 07/26/19 11:00 BP 148/98 H 07/26/19 11:00 Pulse Ox 96 07/26/19 11:00 Weight - Most Recent: 113.398 kg I&O - Last 24 hours: Intake & Output 07/26/19 07/26/19 07/26/19 06:59 14:59 22:59 Intake Total 2200 800 Output Total 1800 1300 Balance 400 -500 Lab Results - Last 24 hrs: Laboratory Results - last 24 hr 07/25/19 07/25/19 07/25/19 Range/Units 12:55 12:55 16:54 WBC (4.0-11.0) K/uL RBC (4.50-5.90) M/uL Hgb (13.0-17.0) g/dL Hct (38.0-50.0) % MCV (80.0-98.0) fL MCH (27.0-32.0) pg MCHC (31.0-37.0) g/dL RDW Std Deviation (28.0-62.0) fl RDW Coeff of Oscar (11.0-15.0) % Plt Count (150-400) K/uL MPV (7.40-12.00) fL Neut % (Auto) (48.0-80.0) % Lymph % (Auto) (16.0-40.0) % [place] % (Auto) (0.0-15.0) % Eos % (Auto) (0.0-7.0) % Baso % (Auto) (0.0-1.5) % Neut # (Auto) (1.4-5.7) K/uL Lymph # (Auto) (0.6-2.4) K/uL [place] # (Auto) (0.0-0.8) K/uL Eos # (Auto) (0.0-0.7) K/uL Baso # (Auto) (0.0-0.1) K/uL Nucleated RBC % /100WBC Nucleated RBCs # K/uL Sodium (136-148) mmol/L Potassium (3.5-5.1) mmol/L Chloride (98-107) mmol/L Carbon Dioxide (21.0-32.0) mmol/L BUN (7.0-18.0) mg/dL Creatinine (0.8-1.3) mg/dL Est Cr Clr Drug Dosing mL/min Estimated GFR (MDRD) ml/min Glucose (74-106) mg/dL Hemoglobin A1c (4.5-6.2) % Calcium (8.5-10.1) mg/dL Phosphorus (2.6-4.7) mg/dL Magnesium (1.8-2.4) mg/dL Iron 93 (50-175) ug/dL TIBC 462 H (250-450) ug/dL % Saturation 20.13 (20-55) % Ferritin 260 (26-388) ng/mL Total Bilirubin (0.2-1.0) mg/dL AST (15-37) IU/L ALT (14-63) IU/L Alkaline Phosphatase (46-116) U/L Troponin I 0.061 H* (0.000-0.056) ng/mL Total Protein (6.4-8.2) g/dL Albumin (3.4-5.0) g/dL Globulin (2.6-4.0) g/dL Albumin/Globulin Ratio (0.9-1.6) Triglycerides (0-200) mg/dL Cholesterol (50-200) mg/dL LDL Cholesterol, Calc (60-180) mg/dL VLDL Cholesterol (5-55) mg/dL HDL Cholesterol (40-60) mg/dL Cholesterol/HDL Ratio (3.3-6.0) TSH 3rd Generation 2.03 (0.36-3.74) uIU/mL 07/25/19 07/25/19 07/25/19 Range/Units 19:39 19:44 22:48 WBC (4.0-11.0) K/uL RBC (4.50-5.90) M/uL Hgb (13.0-17.0) g/dL Hct (38.0-50.0) % MCV (80.0-98.0) fL MCH (27.0-32.0) pg MCHC (31.0-37.0) g/dL RDW Std Deviation (28.0-62.0) fl RDW Coeff of Oscar (11.0-15.0) % Plt Count (150-400) K/uL MPV (7.40-12.00) fL Neut % (Auto) (48.0-80.0) % Lymph % (Auto) (16.0-40.0) % [place] % (Auto) (0.0-15.0) % Eos % (Auto) (0.0-7.0) % Baso % (Auto) (0.0-1.5) % Neut # (Auto) (1.4-5.7) K/uL Lymph # (Auto) (0.6-2.4) K/uL [place]on # (Auto) (0.0-0.8) K/uL Eos # (Auto) (0.0-0.7) K/uL Baso # (Auto) (0.0-0.1) K/uL Nucleated RBC % /100WBC Nucleated RBCs # K/uL Sodium (136-148) mmol/L Potassium (3.5-5.1) mmol/L Chloride (98-107) mmol/L Carbon Dioxide (21.0-32.0) mmol/L BUN (7.0-18.0) mg/dL Creatinine (0.8-1.3) mg/dL Est Cr Clr Drug Dosing mL/min Estimated GFR (MDRD) ml/min Glucose (74-106) mg/dL Hemoglobin A1c 5.0 (4.5-6.2) % Calcium (8.5-10.1) mg/dL Phosphorus (2.6-4.7) mg/dL Magnesium (1.8-2.4) mg/dL Iron (50-175) ug/dL TIBC (250-450) ug/dL % Saturation (20-55) % Ferritin (26-388) ng/mL Total Bilirubin (0.2-1.0) mg/dL AST (15-37) IU/L ALT (14-63) IU/L Alkaline Phosphatase (46-116) U/L Troponin I 0.060 H* 0.053 (0.000-0.056) ng/mL Total Protein (6.4-8.2) g/dL Albumin (3.4-5.0) g/dL Globulin (2.6-4.0) g/dL Albumin/Globulin Ratio (0.9-1.6) Triglycerides (0-200) mg/dL Cholesterol (50-200) mg/dL LDL Cholesterol, Calc (60-180) mg/dL VLDL Cholesterol (5-55) mg/dL HDL Cholesterol (40-60) mg/dL Cholesterol/HDL Ratio (3.3-6.0) TSH 3rd Generation (0.36-3.74) uIU/mL 07/26/19 07/26/19 Range/Units 05:30 05:30 WBC 8.18 (4.0-11.0) K/uL RBC 5.26 (4.50-5.90) M/uL Hgb 17.9 H (13.0-17.0) g/dL Hct 52.0 H (38.0-50.0) % MCV 98.9 H (80.0-98.0) fL MCH 34.0 H (27.0-32.0) pg MCHC 34.4 (31.0-37.0) g/dL RDW Std Deviation 47.7 (28.0-62.0) fl RDW Coeff of Oscar 13 (11.0-15.0) % Plt Count 259 (150-400) K/uL MPV 9.00 (7.40-12.00) fL Neut % (Auto) 65.2 (48.0-80.0) % Lymph % (Auto) 12.2 L (16.0-40.0) % [place] % (Auto) 14.9 (0.0-15.0) % Eos % (Auto) 7.1 H (0.0-7.0) % Baso % (Auto) 0.6 (0.0-1.5) % Neut # (Auto) 5.3 (1.4-5.7) K/uL Lymph # (Auto) 1.0 (0.6-2.4) K/uL [place] # (Auto) 1.2 H (0.0-0.8) K/uL Eos # (Auto) 0.6 (0.0-0.7) K/uL Baso # (Auto) 0.1 (0.0-0.1) K/uL Nucleated RBC % 0.0 /100WBC Nucleated RBCs # 0 K/uL Sodium 138 (136-148) mmol/L Potassium 4.2 (3.5-5.1) mmol/L Chloride 102 (98-107) mmol/L Carbon Dioxide 33.2 H (21.0-32.0) mmol/L BUN 10 (7.0-18.0) mg/dL Creatinine 1.6 H (0.8-1.3) mg/dL Est Cr Clr Drug Dosing 70.06 mL/min Estimated GFR (MDRD) 49.2 ml/min Glucose 64 L (74-106) mg/dL Hemoglobin A1c (4.5-6.2) % Calcium 9.1 (8.5-10.1) mg/dL Phosphorus 3.0 (2.6-4.7) mg/dL Magnesium 2.0 (1.8-2.4) mg/dL Iron (50-175) ug/dL TIBC (250-450) ug/dL % Saturation (20-55) % Ferritin (26-388) ng/mL Total Bilirubin 0.8 (0.2-1.0) mg/dL AST 164 H (15-37) IU/L ALT 240 H (14-63) IU/L Alkaline Phosphatase 76 (46-116) U/L Troponin I (0.000-0.056) ng/mL Total Protein 6.9 (6.4-8.2) g/dL Albumin 3.4 (3.4-5.0) g/dL Globulin 3.5 (2.6-4.0) g/dL Albumin/Globulin Ratio 1.0 (0.9-1.6) Triglycerides 105 (0-200) mg/dL Cholesterol 158 (50-200) mg/dL LDL Cholesterol, Calc 90 (60-180) mg/dL VLDL Cholesterol 21 (5-55) mg/dL HDL Cholesterol 47 (40-60) mg/dL Cholesterol/HDL Ratio 3.4 (3.3-6.0) TSH 3rd Generation (0.36-3.74) uIU/mL Med Orders - Current: Current Medications Discontinued Medications Acetaminophen (Tylenol) 650 mg PO NOW ONE Stop: 07/25/19 13:12 Last Admin: 07/25/19 13:36 Dose: 650 mg Amlodipine Besylate (Norvasc) 10 mg PO DAILY [facility] Last Admin: 07/26/19 09:46 Dose: 10 mg Aspirin (Aspirin) 324 mg PO ONETIME ONE Stop: 07/25/19 13:07 Last Admin: 07/25/19 13:36 Dose: 324 mg Aspirin (Aspirin) 81 mg PO DAILY [facility] Last Admin: 07/26/19 09:46 Dose: 81 mg Chlorthalidone (Chlorthalidone) 25 mg PO DAILY [facility] Last Admin: 07/26/19 09:45 Dose: 25 mg Enoxaparin Sodium (Lovenox) 100 mg SUBCUT ONETIME ONE Stop: 07/25/19 17:44 Last Admin: 07/25/19 18:06 Dose: 100 mg Influenza Virus Vaccine (Fluzone Quad [id number] Syringe) 60 mcg IM .ONCE ONE Stop: 07/26/19 09:01 Last Admin: 07/26/19 12:29 Dose: 60 mcg Labetalol HCl (Normodyne) 10 mg IVPUSH Q6H PRN; Protocol PRN Reason: Hypertension Metoprolol Tartrate (Lopressor) 5 mg IVPUSH ONETIME ONE Stop: 07/25/19 13:09 Last Admin: 07/25/19 13:36 Dose: 5 mg Metoprolol Tartrate (Lopressor) 50 mg PO Q12H [facility] Morphine Sulfate (Morphine) 1 mg IVPUSH Q4H PRN PRN Reason: Pain Nitroglycerin (Nitro-Bid 2%) 1 gm TOP ONETIME ONE Stop: 07/25/19 13:09 Last Admin: 07/25/19 13:37 Dose: 1 gm Sodium Chloride (Saline Flush) 10 ml FLUSH ASDIRECTED PRN PRN Reason: Keep Vein Open Last Admin: 07/25/19 13:37 Dose: 10 ml Sodium Chloride (Saline Flush) 2.5 ml FLUSH ASDIRECTED PRN PRN Reason: Keep Vein Open Last Admin: 07/25/19 13:37 Dose: 2.5 ml - Exam General: Reports: Alert, Oriented, Cooperative Lungs: Reports: Clear to Auscultation, Normal Respiratory Effort Cardiovascular: Reports: Regular Rate, Regular Rhythm, No Murmurs GI/Abdominal Exam: Normal Bowel Sounds, Soft, Non-Tender Extremities: Normal Inspection, Normal Range of Motion, Non-Tender, No Pedal Edema Neurological: Reports: No New Focal Deficit Psy/Mental Status: Reports: Alert, Normal Affect, Normal Mood
--- NOTE | 2019-07-27 14:01 | ECHO ---
EXAM DATE: 07/25/19 PATIENT'S AGE: 38 The echocardiogram report can be seen in this patient's EMR (Electronic Medical Record) in the REPORTS section. The report has also been scanned into PACs. REJI
== END 2019-07-26 13:00 | disposition home or self-care (01) ==
LOC: MW.ED 12:31 → MW.MS 15:41
PROVIDERS: ADMIT Student in an Organized Health Care Education/Training Program; ATTEND Student in an Organized Health Care Education/Training Program
DX: I16.0 Hypertensive urgency (principal); R79.89 Other specified abnormal findings of blood chemistry; I10 Essential (primary) hypertension; R74.0 Nonspecific elevation of levels of transaminase and lactic acid dehydrogenase [LDH]; R00.2 Palpitations; Z23 Encounter for immunization; M54.9 Dorsalgia, unspecified; G89.29 Other chronic pain; F17.210 Nicotine dependence, cigarettes, uncomplicated
CPT/HCPCS: 36415; 71045; 80053; 80061; 80074; 82728; 83036; 83550; 83735; 84100; 84443; 84484; 85025; 85379; 85610; 90471; 90686; 93005; 93306; 96372; 96374; 99285; A9270; G0378; J1650; J3490; 99283; G0008